=== PATIENT | female | born 1945 | race Caucasian/White ===

== ENCOUNTER 2016-06-14 08:44 | Emergency (ER) | payer OTHER, MEDICARE ==
[~2016-06-14] VITALS: Ht 170.2 cm; Wt 54.4 kg
[2016-06-14] MEDS ORDERED: ALPRAZOLAM0.5 M4 PO (09:24)
[2016-06-14] MEDS ORDERED: LEVOTHYROXINE50 MCG PO (09:24)
--- NOTE | 2016-06-14 09:26 | ED GENERAL ADULT ---
History of Present Illness General Chief Complaint: Palpitations Stated Complaint: NECK AND LEFT ARM PAIN, PALPITATIONS Source: patient, family, old records Exam Limitations: no limitations Vital Signs & Intake/Output Vital Signs & Intake/Output Vital Signs Date Time Temp Pulse Resp B/P Pulse O2 O2 Flow FiO2 Ox Delivery Rate 06/14 1112 170/84 06/14 1105 97.4 64 18 199/79 99 Room Air 06/14 0900 97.6 74 18 177/87 97 Room Air Allergies Coded Allergies: wheat (Intermediate, GI 06/14/16) Uncoded Allergies: DAIRY (Intermediate, GI 06/14/16) Reconcile Medications Alprazolam 0.5 MG TABLET 1 TAB PO BIDP PRN ANXIETY (Reported) Cyclobenzaprine HCl 5 MG TABLET 1 TAB PO TIDPRN PRN MUSCLE SPASM Levothyroxine Sodium 50 MCG TABLET 1 TAB PO DAILY AC THYROID (Reported) Triage Note: TRIAGE: PT TO ER WITH DAUGHTER C/C PAIN TO L SIDE OF NECK AND RADIATES INTO L ARM. DESCRIBES TIGHTENING AND THE ARM "FEELS LIKE I HAVE A BLOOD PRESSURE CUFF ON IT". ONSET THIS MORNING, CONSTANT SINCE ONSET THOUGH VARIES IN INTENSITY. ALSO REPORTS S/S OF HEART PALPITATIONS SINCE LAST WEEK WHICH SHE SAW PMD ON TUESDAY FOR. WAS TOLD IT WAS "POSSIBLY ANXIETY I GUESS" BUT ALSO HAS ORDER FOR HEART MONITOR. HAD NEGATIVE "HEART ENZYME TEST". -SOB. -NAUSEA. -DIAPHORESIS. HAD EKG DONE IN [place] PRIOR TO TRIAGE. Triage Nurses Notes Reviewed? yes HPI: Patient presents with a tightness feeling in the left side of her neck as well as palpitations and a feeling like there is a blood pressure cuff around her left upper arm. Patient states that for the past few weeks she has been intermittently feeling that sensation in her left upper arm. Sensation lasts a few minutes and goes away. Patient cannot tell if there is any relation to activity or not. Patient has been also having intermittent palpitations where he feels that her heart is skipping a few beats. 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 This morning the patient woke up and noticed that she was having tightness in the left side of her neck and she noticed that again she was feeling occasional skipped beats and had that feeling in her left upper arm she comes in for evaluation. There are no aggravating or mitigating factors. She rates it at 4 out of 10. PT DENIES any weakness or numbness. Past History Travel History Traveled to [place] past 21 day No Medical History Any Pertinent Medical History? see below for history Neurological: NONE EENT: NONE Cardiovascular: NONE Respiratory: NONE Gastrointestinal: NONE Hepatic: cholelithiasis Renal: NONE Musculoskeletal: NONE Psychiatric: NONE Endocrine: hypothyroidism Blood Disorders: NONE Cancer(s): NONE CLASSROOM TEACHER/Reproductive: NONE Surgical History Surgical History: non-contributory Psychosocial History Who do you live with Spouse What is your primary language [place] Tobacco Use: Never used ETOH Use: denies use Illicit Drug Use: denies illicit drug use Family History Hx Contributory? No Review of Systems Review of Systems Constitutional: Reports: no symptoms. EENTM: Reports: no symptoms. Respiratory: Reports: no symptoms. Cardiovascular: Reports: see HPI, palpitations. GI: Reports: no symptoms. Genitourinary: Reports: no symptoms. Musculoskeletal: Reports: see HPI, neck pain. Skin: Reports: no symptoms. Neurological/Psychological: Reports: see HPI, anxiety. Hematologic/Endocrine: Reports: no symptoms. Immunologic/Allergic: Reports: no symptoms. All Other Systems: Reviewed and Negative Physical Exam Physical Exam General Appearance: well developed/nourished, alert, awake, anxious, mild distress Eyes: Bilateral: PERRL, EOMI. Ears, Nose, Throat: normal pharynx, normal ENT inspection, hearing grossly normal Neck: MUSCLE SPASM ON LEFT Respiratory: normal breath sounds, chest non-tender, no respiratory distress, lungs clear Cardiovascular: regular rate/rhythm, normal peripheral pulses Gastrointestinal: normal bowel sounds, soft, non-tender, no organomegaly Back: normal inspection, normal range of motion Extremities: normal inspection, normal capillary refill, normal range of motion, no edema Neurologic/Psych: no motor/sensory deficits, awake, alert, oriented x 3, normal gait, normal mood/affect Skin: intact, normal color, warm/dry Lymphatic: no anterior cervical justyna Core Measures ACS in differential dx? Yes ASA ordered for poss ACS? No-ACS ruled out CVA/TIA Diagnosis: No Severe Sepsis Present: No Septic Shock Present: No Progress Differential Diagnoses I considered the following diagnoses in my evaluation of the patient: [AMI, ACS, ELECTROLYTE ABNORMALITY, HYPERTHYROID, PVC'S] Plan of Care: Orders Procedure Date/time Status TROPONIN LEVEL 06/14 1223 Complete EKG 06/14 1223 Active Telemetry/Hotel Yardperson 06/14 925 Active THYROID STIMULATING HORMONE 06/14 921 Complete TROPONIN LEVEL 06/14 921 Complete COMPREHENSIVE METABOLIC PANEL 06/14 921 Complete CBC WITHOUT DIFFERENTIAL 06/14 921 Complete EKG 06/14 0847 Active Laboratory Tests 06/14/16 1235: Troponin I < 0.01 06/14/16 0933: Anion Gap 10, Estimated GFR > 60, BUN/Creatinine Ratio 13.3, Glucose 99, Calcium 10.0, Total Bilirubin 0.8, AST 27, ALT 31, Alkaline Phosphatase 83, Troponin I < 0.01, Total Protein 7.4, Albumin 4.3, Globulin 3.1, Albumin/Globulin Ratio 1.4, TSH 2.060, CBC w Diff NO MAN DIFF REQ, RBC 4.51, MCV 90.9, MCH 30.6, RDW 12.8, MPV 11.1 H, Gran % 63.3, Lymphocytes % 27.7, Monocytes % 7.4, Eosinophils % 1.0 , Basophils % 0.6, Absolute Granulocytes 4.6, Absolute Lymphocytes 2.0, Absolute Monocytes 0.5, Absolute Eosinophils 0.1, Absolute Basophils 0, PUBS MCHC 33.6 Initial ED EKG: NSR, no ST T wave changes Prior EKG: unchanged Rhythm Strip: normal sinus rhythm Comments: Case was discussed with Chente Lee MD. Patient will follow-up in the office for a stress test and further evaluation. States that her neck pain was relieved with the Flexeril. Departure Departure Disposition: HOME OR SELF CARE Condition: Stable Clinical Impression Primary Impression: Muscle spasm Secondary Impressions: Chest pain, unspecified Qualifiers: Chest pain type: other chest pain Qualified Code: R07.89 - Other chest pain Referrals: BELLA HEAD,ELLIOT OLIVAS MD,BRANDT Pacheco (PCP/Family) Additional Instructions: Follow-up with Dr. Sahu. Return if symptoms worsen or for any concerns. Departure Forms: Customer Survey General Discharge Information Prescriptions: Current Visit Scripts Cyclobenzaprine HCl 1 TAB PO TIDPRN PRN MUSCLE SPASM #30 TAB Critical Care Note Critical Care Note Critical Care Time: mins: (30 MIN)
[2016-06-14 09:45] LABS: ABSOLUTE BASOPHIL COUNT 0 /CUMM (0.0-0.2); ABSOLUTE EOSINOPHIL COUNT 0.1 /CUMM (0.0-0.7); ABSOLUTE GRANULOCYTE CT 4.6 /CUMM (1.4-6.5); ABSOLUTE MONOCYTE COUNT 0.5 /CUMM (0.10-0.60); BASOPHIL % 0.6 % (0.0-2.0); GRANULOCYTE % 63.3 % (42.2-75.2); MEAN CORPUSCULAR HGB 30.6 PG (27.0-31.0); MEAN CORPUSCULAR HGB CONC 33.6 G/DL (33.0-37.0); MEAN CORPUSCULAR VOLUME 90.9 FL (81.0-99.0); MEAN PLATELET VOLUME 11.1 FL (7.4-10.4); PLATELET COUNT 250 /CUMM (130-400); RBC DISTRIBUTION WIDTH 12.8 % (11.5-14.5); RED BLOOD CELL CT 4.51 /CUMM (4.20-5.40); WHITE BLOOD CELL COUNT 7.2 /CUMM (4.8-10.8)
[2016-06-14] MEDS ORDERED: CYCLOBENZAPRINE5 M2 PO (13:22)
[2016-06-14 13:44] VITALS: BP 156/84
== END 2016-06-14 13:44 ==
LOC: ERH 08:44
PROVIDERS: Emergency Medicine
DX: M62.838 Other muscle spasm (principal); R00.2 Palpitations; E03.9 Hypothyroidism, unspecified; R07.9 Chest pain, unspecified
CPT/HCPCS: 93005; 93010